=== PATIENT | female | born 1960 | race Hispanic/Latino ===

== ENCOUNTER 2016-10-19 12:34 | Day surgery (SDC) | payer OTHER ==
[~2016-10-19 12:34] MED LIST: ACYCLOVIR400 MG OR; ASPIRIN ADULT L81 M2 PO; BYDUREON2 MG SC; GABAPENTIN300 MG PO; GABAPENTIN600 MG PO; LANTUS100 MG/ML SC; LISINOPRIL10 M1 PO; LORATADINE10 M1 PO; LOTRISONE CREAM15 G1 EX; METFORMIN1000 MG PO; NOVOLOG100 IU/1 M SC; OMEPRAZOLE20 M2 PO; PREDNISONE10 MG OR; RANITIDINE300 MG PO; REGRANEX 0.01% EX; SIMVASTATIN40 MG PO; TYLENOL # 31 TA1 PO; VISINE TEARS OP; XANAX0.25 MG OR
[2016-10-19 16:00] VITALS: BP 131/65
== END 2016-10-19 16:13 | disposition home or self-care (01) | DRG 392 ==
LOC: ORM 12:34 → ENDO 12:34 → ORM 15:45
PROVIDERS: ATTEND Internal Medicine Gastroenterology
PROC: 0DB98ZX Excision of Duodenum, Via Natural or Artificial Opening Endoscopic, Diagnostic (ICD-10-PCS; principal; 2016-10-19)
PROC: 0DB48ZX Excision of Esophagogastric Junction, Via Natural or Artificial Opening Endoscopic, Diagnostic (ICD-10-PCS; 2016-10-19)
DX: R19.7 Diarrhea, unspecified (principal); I10 Essential (primary) hypertension; R10.13 Epigastric pain; R11.2 Nausea with vomiting, unspecified; K29.70 Gastritis, unspecified, without bleeding; K57.90 Diverticulosis of intestine, part unspecified, without perforation or abscess without bleeding; K64.8 Other hemorrhoids; R14.0 Abdominal distension (gaseous); K21.9 Gastro-esophageal reflux disease without esophagitis; E11.9 Type 2 diabetes mellitus without complications; M06.9 Rheumatoid arthritis, unspecified; E78.00 Pure hypercholesterolemia, unspecified